=== PATIENT | female | born 1960 | race Caucasian/White ===

== ENCOUNTER → 2019-09-05 10:41 | Outpatient (CLI) | payer BC, SELFPAY | DX: Z11.59 Encounter for screening for other viral diseases (principal) | CPT/HCPCS: 87635; G2023; U0003 ==

== ENCOUNTER → 2019-09-24 11:29 | Outpatient (CLI) | payer BC, SELFPAY | DX: Z11.59 Encounter for screening for other viral diseases (principal) | CPT/HCPCS: 87635; G2023; U0003 ==